=== PATIENT | male | born 1960 | race African-American/Black ===

== ENCOUNTER 2018-11-09 10:09 | Outpatient (CLI) | payer OTHER ==
--- NOTE | 2018-11-09 10:33 | RAD ---
XR Thoracic Spine 2 View HISTORY: Disability exam COMPARISON: None. FINDINGS: The vertebral bodies maintain normal height minimal osteophytic changes are seen. Pedicles appear intact. IMPRESSION: Minimal arthritic changes of the spine.
--- NOTE | 2018-11-09 10:34 | RAD ---
XR Knee Rt 2 View HISTORY: Disability exam COMPARISON: None FINDINGS: Minimal patellofemoral degenerative spurs are seen. No significant medial or lateral compar tment narrowing. Slight soft tissue prominence in the region of the tibial insertion of the patellar tendon. IMPRESSION: Minimal arthritic changes.
--- NOTE | 2018-11-09 10:34 | RAD ---
XR Shoulder Rt 2 View: 11/09/2018 12:00 AM CLINICAL INDICATION: Disability exam COMPARISON: None. FINDINGS: Fracture:No fracture. Arthropathy:There is moderate right AC joint osteoarthritis. Prominent, multifocal heterotopic densit y of the right shoulder is present compatible with multiple intra-articular bodies. Incidental findings:None of significance. IMPRESSION: 1. No acute osseous abnormality. 2. Multiple heterotopic densities of the right shoulder consistent with intra-articular bodies. 3. Osteoarthritis.
== END 2018-11-09 10:10 | disposition home or self-care (01) ==
LOC: BICRAD 10:09
PROVIDERS: ATTEND Internal Medicine
DX: Z02.71 Encounter for disability determination (principal); M17.11 Unilateral primary osteoarthritis, right knee; M19.011 Primary osteoarthritis, right shoulder
CPT/HCPCS: 72070

== ENCOUNTER 2022-01-29 07:38 | Outpatient (CLI) | payer OTHER | END 2022-01-29 07:39 | disposition home or self-care (01) | LOC: BICULT 07:38 | PROVIDERS: ATTEND Internal Medicine Nephrology | DX: N18.30 Chronic kidney disease, stage 3 unspecified (principal) | CPT/HCPCS: 76770 ==

== ENCOUNTER 2022-03-29 13:24 | Outpatient (CLI) | payer OTHER | END 2022-03-29 13:25 | disposition home or self-care (01) | LOC: ULT 13:24 | PROVIDERS: ATTEND Internal Medicine | DX: I10 Essential (primary) hypertension (principal); R00.2 Palpitations; R01.1 Cardiac murmur, unspecified; I07.1 Rheumatic tricuspid insufficiency | CPT/HCPCS: 93306 ==